=== PATIENT | male | born 1985 | race Caucasian/White ===

== ENCOUNTER 2023-12-21 09:14 | Emergency (ER) | payer OTHER ==
[2023-12-21] MEDS ORDERED: Home HYDROcodone/Acetaminophen 5/325 MG #4 TABS/PACK PO ONE (10:17)
== END 2023-12-21 13:15 | disposition home or self-care (01) ==
LOC: ED 09:14 → EDSTATUS 01-15 14:42
DX: S60.551A Superficial foreign body of right hand, initial encounter (principal); W45.8XXA Other foreign body or object entering through skin, initial encounter
CPT/HCPCS: 90715